=== PATIENT | male | born 1970 | race Caucasian/White ===

== ENCOUNTER 2017-05-10 16:56 | Emergency (ER) | payer MEDICAID, SELFPAY ==
[2017-05-10 16:57] VITALS: BP 110/69; PULSE 125; RESP 16; TEMP 37.4; O2SAT 96; BMI 24.3
--- NOTE | 2017-05-10 17:35 | RAD_ITS ---
STUDY: X-RAY - RIGHT FOOT CLINICAL: Male, 46 years old. Acute traumatic injury of the right foot. TECHNIQUE: 3 view(s) of the foot. COMPARISON: None. FINDINGS: Normal talus, calcaneus, and tarsal bones. Dorsal enthesophyte of the calcaneus. Normal visualized subtalar, talonavicular, calcaneocuboid, tarsal and tarsometatarsal articulations. Normal metatarsi. Normal metatarsophalangeal joint of the great toe. Normal tibial and fibular sesamoid bones. Normal interphalangeal joint of the great toe. Normal phalanges of the great toe. Normal second through fifth metatarsophalangeal joints. Normal interphalangeal joints and phalanges of the lesser toes. The soft tissue structures are unremarkable. RAD/Foot min 3 Views IMPRESSION: Negative for fracture, dislocation or foreign body. Electronically Signed: Mere Murillo MD at 18:28 EST , Service support ,
--- NOTE | 2017-05-10 18:38 | ED.VISSUMM ---
- ER Visit Summary Date of Service: 05/10/17 Chief Complaint: Injury to right foot History of Present Illness: The patient is a 46 M who states a fence post had come out of the ground. He had stepped on it to push it back into the ground and it punctured through his shoe and he sustained a wound to the bottom of his right foot. He complains of pain and swelling. He has been able to bear weight. He denies any other injuries. Physical Examination: Afebrile initial heart rate 125 vitals otherwise normal Heart regular rhythm tachycardia Lungs are clear Abdomen soft Patient has active full range of motion of the right foot there is about half a centimeter very superficial wound on the plantar aspect of the foot near the base of the first toe this does not go completely through skin there is no bleeding he is neurovascularly intact with brisk capillary refill normal sensation a palpable pulse Test Results: Foot x-ray is normal Emergency Department Course and Treatment: Patient was advised on supportive care including ice and elevation. He was given a postoperative shoe for comfort. He was discharged. Treatment Plan: [] Disposition: Discharge Impression: Superficial right foot laceration Right foot contusion This note was generated with [employer] dictation software. It may contain incorrect words, spelling, and punctuation that were not noted in review of the chart prior to signing ED Disposition - Plan for ED Patient: Chief Complaint: Lower Extremity Injury Referrals: Faraz Moore DO [Primary Care Provider] -
--- NOTE | 2017-05-10 18:40 | ED.DEP ---
ED Disposition - Plan for ED Patient: Chief Complaint: Lower Extremity Injury Instructions: ED Contusion Foot Referrals: Faraz Moore DO [Primary Care Provider] -
== END 2017-05-10 18:46 | disposition home or self-care (01) ==
PROVIDERS: Emergency Provider Emergency Medicine; Family Provider Family Medicine; PCP Family Medicine
DX: S90.31XA Contusion of right foot, initial encounter (principal); Z72.0 Tobacco use; X58.XXXA Exposure to other specified factors, initial encounter; Y93.89 Activity, other specified; Y92.89 Other specified places as the place of occurrence of the external cause; Y99.8 Other external cause status
CPT/HCPCS: 73630; 99281

== ENCOUNTER 2017-06-01 22:51 | Emergency (ER) | payer MEDICAID, SELFPAY ==
[2017-06-01 22:52] VITALS: BP 155/102; PULSE 73; RESP 16; TEMP 36.8; O2SAT 98; BMI 23.0
--- NOTE | 2017-06-01 23:13 | RAD_ITS ---
STUDY: X-RAY - LEFT FOOT CLINICAL: Male, 46 years old. Puncture wound TECHNIQUE: 3 view(s) of the foot. COMPARISON: None. FINDINGS: Normal talus, calcaneus, and tarsal bones. Normal visualized subtalar, talonavicular, calcaneocuboid, tarsal and tarsometatarsal articulations. Normal metatarsi. Normal metatarsophalangeal joint of the great toe. Normal tibial and fibular sesamoid bones. Normal interphalangeal joint of the great toe. Normal phalanges of the great toe. Normal second through fifth metatarsophalangeal joints. There is Hammer toe deformity of the second through fifth toes. There appears be a cortical defect in the trochlea of the second proximal phalanx. The soft tissue structures are unremarkable. RAD/Foot min 3 Views IMPRESSION: No radiopaque foreign body. Possible nondisplaced intra-articular fracture second proximal phalanx evident on one projection only. Electronically Signed: Evgeny Angulo MD at 23:53 EDT , Service support ,
--- NOTE | 2017-06-01 23:19 | ED.DCSUM_ITS ---
- ER Visit Summary Date of Service: 06/01/17 Chief Complaint: Pain and puncture wound top of the left foot History of Present Illness: The patient is a 46 M Past medical history. Tetanus up-to-date from a year ago. Patient states a board with a nail sticking through it fell down off his boat and struck him on top of his left foot going through the shoe and the nail sticking in his foot which he had to remove the whole board. This occurred about 3 hours ago. Complaining of foot pain and the puncture wound. Denies any other injuries. Physical Examination: Appearing middle-aged male. Vital signs are stable afebrile. HEENT exam unremarkable for dentition. Lungs clear to auscultation. Heart regular rate and rhythm. Chest wall nontender. Abdomen soft nontender. He is moving all 4 extremities. They are neurovascularly intact. The top of his left foot has a puncture wound from a nail puncture. There is mild swelling. There is no cellulitis. No streaking. There is tenderness to the top of his left foot. No gross bony deformity. He is able to wiggle his toes. His DP pulses intact. He has chronic changes to his nails secondary to nail fungal infections. Left foot is neurovascularly intact. Test Results: Foot x-ray read by myself shows no acute abnormality. No foreign body. No fracture. No subcu air. Emergency Department Course and Treatment: Patient be treated with Keflex due to the puncture wound. [place] for pain. Treatment Plan: Repeat exam patient is doing well. Will be discharged to home. [place] home pack. Otherwise ice and Motrin for pain. He will be placed on 5 days of Keflex due to the puncture wound but currently there is no signs of infection. Disposition: Discharge Impression: Acute left foot contusion Acute left foot puncture wound on a nail This note was generated with [employer] dictation software. It may contain incorrect words, spelling, and punctuation that were not noted in review of the chart prior to signing ED Disposition - Plan for ED Patient: Chief Complaint: Wound Referrals: Faraz Moore DO [Primary Care Provider] -
[2017-06-01] MEDS: HYDROcodone Bitartrate/Apap 5/325 Tablet PO ×2 (23:24→23:51)
[2017-06-01] MEDS: Cephalexin 250 MG Capsule 500 MG PO (23:25)
--- NOTE | 2017-06-01 23:46 | DCINST.ED_ITS ---
ED Disposition - Plan for ED Patient: Disposition: Home or Assisted Living Chief Complaint: Wound Instructions: ED Wound Puncture Foot Prescriptions: Cephalexin [Keflex] 500 mg PO Q6 #20 cap Referrals: Faraz Moore DO [Primary Care Provider] - As Needed Additional Instructions: Ice and elevate left foot. Motrin and limited [place] for pain. Watch for any signs of infection. If you develop a fever, red streaks or worsening swelling return to the ER. Keflex 1 pill 4 times a day for the next 5 days to prevent infection.
== END 2017-06-01 23:57 | disposition home or self-care (01) ==
PROVIDERS: Emergency Provider Emergency Medicine; Family Provider Family Medicine; PCP Family Medicine
DX: S91.332A Puncture wound without foreign body, left foot, initial encounter (principal); S90.32XA Contusion of left foot, initial encounter; Z72.0 Tobacco use; W45.0XXA Nail entering through skin, initial encounter; W22.8XXA Striking against or struck by other objects, initial encounter; Y93.89 Activity, other specified; Y92.008 Other place in unspecified non-institutional (private) residence as the place of occurrence of the external cause; Y99.8 Other external cause status
CPT/HCPCS: 73630; 99283

== ENCOUNTER 2017-06-17 16:08 | Emergency (ER) | payer MEDICAID, SELFPAY ==
[2017-06-17 16:08] VITALS: BP 146/69; PULSE 107; RESP 16; TEMP 36.4; O2SAT 95; BMI 23.4
--- NOTE | 2017-06-17 16:45 | ED.DCSUM_ITS ---
- ER Visit Summary Date of Service: 06/17/17 Chief Complaint: Right foot pain History of Present Illness: The patient is a 46 M presents to the emergency department with pain in his right foot. Patient states he was working outdoors yesterday per he did not notice, but there was some gravel in his boots. When he took him off, he had some increasing pain in the ball of his foot. Throughout the day, the pain is worsened. He states he went to his primary care office sent in here. He denies any fevers or chills. He denies any history of infection. He does not take any daily medications. Physical Examination: Equal. Patient does have some chronic change in the skin at the plantar aspect of the base of the first metatarsal. There is no fluctuance. There is minimal erythema. There is no streaking. Pulses are normal. No evidence of foreign body. Mild tenderness to palpation. Test Results: [] Emergency Department Course and Treatment: Plain films were obtained of the foot. There does appear to be a metallic sliver that is within the plantar aspect of the foot. The patient has tenderness at this area. I did feel the foreign body retrieval be the best benefit. I could not achieve anesthesia with the patient despite the large amount of local anesthetic done under sterile technique. As the patient would not tolerate this, I discussed the case with Dr. Andres. He actually came to the emergency department and evaluated the patient. He had tried to anesthetize the patient and he still would not tolerate it. The plan is for outpatient operative retrieval. The patient will be placed on oral antibiotics. He will be scheduled for outpatient operative retrieval within the next 72 hours. He is comfortable with this plan of care. Treatment Plan: [] Disposition: Discharge Impression: Foreign body right foot This note was generated with [employer] dictation software. It may contain incorrect words, spelling, and punctuation that were not noted in review of the chart prior to signing ED Disposition - Plan for ED Patient: Chief Complaint: Lower Extremity Injury Instructions: ED Foreign Body Soft Tissue Prescriptions: Hydrocodone Bitart/Apap 5-325 [[place] 5/325] 1 tab PO Q4H PRN PRN 3 Days #8 tab PRN Reason: Pain Ciprofloxacin [Cipro] 500 mg PO BID #14 tab Clindamycin [Cleocin] 300 mg PO 4X/DAY #80 cap Referrals: Kannan Andres DPM [STAFF PHYSICIAN] -
[2017-06-17] MEDS: HYDROcodone Bitartrate/Apap 5/325 Tablet PO (17:01)
--- NOTE | 2017-06-17 17:03 | RAD_ITS ---
STUDY: X-RAY - RIGHT FOOT CLINICAL: Male, 46 years old. Pain. Swelling. TECHNIQUE: 3 view(s) of the foot. COMPARISON: 05/10/2017. FINDINGS: There is an enthesophyte involving the posterior superior calcaneus at the site of insertion of the Achilles tendon. Normal visualized subtalar, talonavicular, calcaneocuboid, tarsal and tarsometatarsal articulations. Normal metatarsi. Normal metatarsophalangeal joint of the great toe. Normal tibial and fibular sesamoid bones. Normal interphalangeal joint of the great toe. Normal phalanges of the great toe. Normal second through fifth metatarsophalangeal joints. Normal interphalangeal joints and phalanges of the lesser toes. There is a 9 mm linear metal foreign body in the soft tissues plantar to the first proximal phalanx. This was not present on the previous exam. RAD/Foot min 3 Views IMPRESSION: No acute fracture or dislocation. Linear metal foreign body in the soft tissues anterior to the first proximal phalanx. Electronically Signed: Armand Kemp MD at 17:22 EDT , Service support ,
--- NOTE | 2017-06-17 19:00 | PCM.CONS.GEN ---
Reason for Consult Date of Consultation: 06/17/17 Reason for Consultation: Right foot pain, foreign body History of Present Illness: The patient is a 46 year old male presented to the ER for right foot pain. Patient relates he was working with boots on, and developed pain yesterday, but noted significant worsening pain today. He relates he went to see his PCP, who sent him here. I was consulted by Dr. Rosa from the ER, patient was noted to have two small puncture wounds to the plantar right 1st MTPJ, xrays were ordered and saw a metallic foreign body. Dr. Rosa attempted local anesthesia, patient was not able to tolerate it, and local anesthesia was not able to be obtained. When speaking to the patient, patient relates he hates needles. Patient denies any other complaints at this time. Past Medical History Allergies aspirin Allergy (Verified 06/17/17 16:09) Swelling naproxen Allergy (Verified 06/17/17 16:09) Swelling Penicillins Allergy (Verified 06/17/17 16:09) Hives Home Medications: Ambulatory Orders Medication Instructions Recorded Ciprofloxacin [Cipro] 500 mg PO BID #14 tab 06/17/17 Clindamycin [Cleocin] 300 mg PO 4X/DAY #80 cap 06/17/17 Hydrocodone Bitart/Apap 5-325 1 tab PO Q4H PRN PRN 3 Days #8 tab 06/17/17 [[place] 5/325] Smoking Status: Current every day smoker Review of Systems Constitutional: Denies: Anorexia, Chills, Fever, Malaise, Weakness, Fatigue Musculoskeletal: Reports: Foot Pain. Denies: Back Pain, Leg Pain, Shoulder Pain Objective: Right foot xrays, 3 views from today were reviewed: There is metallic foreign body to the foot at the level of the plantar aspect of the base of the hallux, there is no gas, no fractures, no dislocations, no periosteal reaction or osteolysis present. - Physical Exam General: Alert, Oriented x3, Cooperative, No apparent distress Extremities: No cyanosis, Capillary Refill Less than 3 Seconds, No Calf Tenderness, Peripheral Pulses Normal, - - There are two puncture wounds to the plantar medial 1st met head on the right foot, there is significant callus formation along with POP localized to this area, there is no drainage noted, however there is some warmth and mild inflammation to the area, there is no necrosis, no maloder, no streaking, no fluctuance, no crepitus present to the site. There are no other open lesions or areas of inflammation bilateral foot/ankle. Sensation is intact to the foot/ankle, motor function intact foot/ankle, and vascular status intact to the foot/ankle bilaterally. Calf is soft and supple bilateral. CFT < 2 seconds to all toes, no other areas of edema bilaterally. No other open wounds bilateral foot/ankle. Hair present to the foot bilateral. Muscle strength intact to the foot/ankle to the major muscle groups bilateral. Overall poor hygiene present. There is thickening, yellowing, and dystrophy of the toenails bilateral. Psych/Mental Status: Appropriate, Alert and oriented to time, place, person, mood and affect Vital Signs Temp Pulse Resp BP Pulse Ox 97.6 F L 80 16 132/78 H 98 06/17/17 16:08 06/17/17 19:09 06/17/17 19:09 06/17/17 19:09 06/17/17 19:09 Oxygen Delivery Method Room Air Weight: 76.204 kg Body Mass Index (BMI) 23.4 Assessment/Plan Puncture wounds right foot with foreign body right foot Mild cellulitis right foot Reviewed the findings with the patient. Reviewed the right foot xrays, 3 views from today in the ER, reviewed the findings with the patient. With patient's consent and after the site was cleansed with 70% Isopropyl alcohol, attempts were made to complete a 1st ray nerve block on the right foot, however patient not able to tolerate this, and no anesthetic was administered. Discussed going to operating room for local and MAC anesthesia, he was amendable to this, however he relates he will not be available until , he relates he will be leaving until then to drive his friend out of town. Patient relates he must go and patient relates he will cut off his foot if has to in order to take friend. He relates he has to go because friend did him a favor with his house, and owes him. Reviewed the risks with patient, he understands this could get worse in meantime, patient expressed understanding and agreement. We will plan to proceed with foreign body removal / I+D when he returns. In meantime, patient was prescribed clindamycin and cipro for antibiotic coverage (culture was not obtained, as there was nothing to culture at this time). A gauze/fidencio dressing was applied, and patient was instructed to keep the site clean and otherwise dry. He was given a surgical shoe. He is to limit activity on foot as much as possible. This was discussed with him and he agreed with plan. All of his questions were answered. I discussed with ER physician Dr. Rosa in detail regarding this.
[2017-06-17 19:09] VITALS: BP 132/78; PULSE 80; RESP 16; O2SAT 98
== END 2017-06-17 19:10 | disposition home or self-care (01) ==
PROVIDERS: Emergency Provider Emergency Medicine; Family Provider Family Medicine; PCP Family Medicine
DX: S91.341A Puncture wound with foreign body, right foot, initial encounter (principal); Z72.0 Tobacco use; X58.XXXA Exposure to other specified factors, initial encounter; Y93.01 Activity, walking, marching and hiking; Y92.89 Other specified places as the place of occurrence of the external cause; Y99.8 Other external cause status
CPT/HCPCS: 73630; 99282

== ENCOUNTER 2017-06-19 05:50 | Day surgery (SDC) | payer MEDICAID, SELFPAY ==
[2017-06-19] VITALS (7 sets, daily range): BP systolic 103–119; BP diastolic 67–87; PULSE 72–81; RESP 16; TEMP 36.6–36.7; O2SAT 94–100; BMI 23.1
--- NOTE | 2017-06-19 05:56 | EKG12_ITS ---
Test Reason : PE OP Blood Pressure : / mmHG Vent. Rate : 083 BPM Atrial Rate : 083 BPM P-R Int : 118 ms QRS Dur : 112 ms QT Int : 370 ms P-R-T Axes : 070 071 077 degrees QTc Int : 434 ms Normal sinus rhythm Normal ECG When compared with ECG of 03-APR-2012 16:29, No significant change was found Confirmed by MUSA SOMERS, KEYANA ([id number]), proposal editor MARIBEL SANDY ([id number]) on 06/23/2017 2:08:12 PM Referred By: Kannan Andres Confirmed By:KEYANA VIGIL MD
[2017-06-19 06:21] LABS: Absolute Lymphocyte Count 1.92 X10^3/ul (0.83-4.51); Basophil# 0.04 X10^3/uL; Basophil% 0.5 % (0-1); Eosinophil# 0.44 X10^3/uL; Eosinophils% 5.4 % (0-5); Hematocrit 39.3 % (40-54); Hemoglobin 13.1 g/dl (13.0-16.5); Lymphocyte # 1.92 X10^3/ul (4.0); Lymphocyte % 23.6 % (19-41); Mean Corp Hgb Conc 33.3 g/gl (32-36); Mean Corpuscular Hgb 32.1 pg (27.0-32.0); Mean Corpuscular Volume 96.3 fL (80-94); Mean Platelet Vol. 9.4 fl (6.2-12.0); Monocyte# 0.69 X10^3/uL; Monocyte% 8.5 % (0-10); Neutrophil # 5.04 X10^3/uL (2.7-7.7); Neutrophil % 61.9 % (47-70); Platelet Count 278 K/mm3 (150-450); RBC Distribution Width CV 12.3 % (11.6-14.6); RBC Distribution Width SD 42.4 fl (35.1-43.9); Red Blood Count 4.08 M/mm3 (4.6-6.2); White Blood Count 8.1 K/mm3 (4.4-11.0)
[2017-06-19 06:24] LABS: POSITIVE COUNT NO; POSITIVE DIFFERENTIAL NO; POSITIVE MORPHOLOGY NO
[2017-06-19 06:34] LABS: ALB/GLOB Ratio 0.8 RATIO (0.9-2.4); AST(SGOT) 29 U/L (15-37); Alanine Aminotransfer ALT/SGPT 28 U/L (16-61); Alkaline Phosphatase 86 U/L (45-117); Anion Gap 5 (5-15); BUN 15 mg/dL (7-18); BUN/Creat Ratio 16.4 RATIO (10-20); Calcium,Total 8.3 mg/dL (8.5-10.1); Chloride 106 mmol/L (98-107); Creatinine, Serum 0.91 mg/dL (0.70-1.30); EST Glomerular Filtration Rate 94 mL/min (>60); Est Glom Filt Rate - Afr Amer 114 mL/min (>60); Estimated Creatinine Clearance 106.88 ml/min; Globulin 3.6 g/dL (2.2-4.2); Glucose 96 mg/dL (74-106); Protein, Total 6.6 g/dL (6.4-8.2); Sodium Level 139 mmol/L (136-145)
[2017-06-19] MEDS: Clindamycin 900 MG/50 ML BAG 75 MG IV (07:07)
--- NOTE | 2017-06-19 07:15 | FORE_PTH ---
PATIENT: LATOSHA WARREN LOC: [facility] – [place] U#:[id number] AGE/SX: 46/M ROOM: RE06/19/[address]: Dr. Kannan Andres DPM : 1970 BED: DIS: 06/19/2017 SPEC #: [id number] RECD: 06/19/17 08:08 STATUS: BRUNA BROCK #: [id number] OMAR: 06/19/17 07:[address]: Kannan Andres DEPT: SURGICAL PATHOLOGY RECD BY: Av Andujar ENTERED: 06/19/17 09:34 SP TYPE: FOREIGN B ELVIS DR: Dr. Faraz Moore, DO Tissues: FOREIGN BODY Procedures: Surgery Specimen Level I HEADER OPERATION: Incision and drainage abscess, removal foreign body, foot PRE-OP DIAGNOSIS: Foreign body right foot TISSUE SUBMITTED: Right foot foreign body MICROSCOPIC DIAGNOSIS Right foot foreign body: Foreign body (thin metallic pin). Gross only. SJ:lorena 06/20/17 MICROSCOPIC DESCRIPTION Slides are reviewed. GROSS DESCRIPTION Received in fixative is one container labeled with the patient's name and designated right foot foreign body. The specimen consists of a thin metallic pin measuring 1 cm in length and less than 0.1 cm in diameter. The object has magnetic properties. No soft tissue submitted. This is a grossly only. AM/sp 06/19/17 CPT: 98963
--- NOTE | 2017-06-19 07:15 | RAD_ITS ---
STUDY: X-RAY - RIGHT FOOT CLINICAL: Male, 46 years old. Foreign body removal TECHNIQUE: Two limited view(s) of the foot were obtained. COMPARISON: June 17, 2017 FINDINGS: Bones: There are no acute osseous abnormalities. Joints: The visualized joints are unremarkable. Soft tissues: The soft tissues are unremarkable. Foreign body: None RAD/Foot 2 Views IMPRESSION: Limited views of the distal right foot were obtained intraoperatively during foreign body removal. The previously seen radiopaque linear foreign body is no longer visualized in the plantar soft tissues. Electronically Signed: Marily Kaur MD at 14:36 EDT Tel Direct: [phone], Service support ,
--- NOTE | 2017-06-19 07:15 | PCM.DC.POD ---
Discharge Diet: Light diet - advance as tolerated Discharge Activity: May Not Drive Weight Bearing Status: No weight bearing - No weightbearing to the ball and toes of the right foot Keep extremity elevated above heart level: Right Leg - Keep right foot elevated for at least 50 minutes of every hour using pillows Call your doctor if your incision/area has: Continuous Slow Oozing, Sudden Increased Bleeding, Foul Smelling Discharge Call your doctor if you observe: Fever of 101 or Higher, Coldness, Increased Pain, Shortness of breath, Chest pain, Calf discomfort, Uncontrolled pain Cleanse incision/area with: - - Starting tomorrow, remove dressing from right foot. Cleanse with antibacterial soap and saline solution, apply overlying gauze and fidencio dressing, change daily. Allergies/Adverse Reactions: Allergies aspirin Allergy (Verified 06/18/17 10:24) Swelling naproxen Allergy (Verified 06/18/17 10:24) Swelling Penicillins Allergy (Verified 06/18/17 10:24) Hives Medications to take at Discharge Ciprofloxacin [Cipro] 500 mg PO BID #14 tab 06/17/17 Clindamycin [Cleocin] 300 mg PO 4X/DAY #80 cap 06/17/17 Hydrocodone Bitart/Apap 5-325 [[place] 5/325] 1 tab PO Q4H PRN PRN 3 Days #8 tab 06/17/17 0.9 % Sodium Chloride [Saline Wound Wash] 210 ml MC DAILY 14 Days solution 06/19/17 The following prescriptions were given: 0.9 % Sodium Chloride [Saline Wound Wash] 210 ml MC DAILY 14 Days solution Primary Care Physician: Faraz Moore DO [Primary Care Provider] - Please Follow Up With: Kannan Andres DPM When: within 1 week or sooner if needed
[2017-06-19] MEDS: Bupivacaine 0.25% 30 ML Vial (07:33)
--- NOTE | 2017-06-19 07:42 | OP.PCM_ITS ---
Report of Operation Date of Procedure: 06/19/17 - Surgeon: Kannan Andres DPM Pre-Operative Diagnosis: Foreign body and abscess right foot Post-Operative Diagnosis: Same Surgery/Procedure Performed:: Incision and drainage of abscess right foot. Removal of foreign body right foot Description of Surgical Findings:: Abscess right foot Metallic foreign body right foot Type of Anesthesia:: General Specimen's removed: 1. Culture of abscess right foot sent to microbiology. 2. Foreign body right foot sent to pathology Description of Procedure: Indications: Patient is 46 year old gentleman who has a foreign body to the right foot at the base of the great toe. It is painful, swollen, with some redness present. He was seen in the ER earlier this week, however he was unable to tolerate any local anesthetic. He elected to come to the operating room for removal of foreign body along with incision and drainage right foot. He has been taking clindamcyin as well as cipro as prescribed by the ER. The possible benefits vs risks, goals, expectations, and typical healing time were discussed with patient in detail. He was advised the risks include, but are not limited to further pain, worsening, weakness, poor cosmetic result, problems walking, need for further procedures, recurrence, numbness, swelling, chronic pain, nerve damage, scar tissue, complex regional pain syndrome, blood clots, loss of life, loss of limb. The patient expressed understanding and agreement, he was able to repeat these back. The consent forms were reviewed with him and he freely signed them. All of his questions were answered. Operative procedure: The patient was brought back to the operating room and was placed on the operating room table in the supine position. He was carefully secured to the operating room table with a safety belt around his waist. The patient received general anesthesia per the anesthesia team. The patient received 900mg of IV Clindamycin for antibiotic prophylaxis. A well padded pneumatic tourniquet was applied around the right ankle. The right foot was scrubbed, prepped, and draped in the usual aseptic fashion. A time out was performed and the patient was properly identified and the surgical plan was confirmed. The right foot was elevated for 3 minutes and the right ankle pneumatic tourniquet was inflated to 250mmHg. Further attention was directed to the foot, there were two areas of puncture wound present, with overlying significant callus tissue. The overlying callus tissue was debrided away using a 15 blade. It was noted one of the puncture wounds was healed. The other was noted to have any underlying abscess which was present. The abscess was incised with a 15 blade, there was immediate expression of purulent drainage , the site was probed and extended down to the subcutaneous tissue layer, there was not probe to bone, joint or tendon. The abscess was completely drained and was excised using a 15 blade, a culture was obtained and was sent to microbiology for further evaluation. It was noted within the site there was the metallic foreign body which was removed. Intra operative flouroscopy was used and confirmed removal of the foreign body in toto. The foreign body was sent to pathology. At this time the site was flushed out with copious amounts of normal saline solution. All remaining tissues appeared to be healthy and viable. The site was packed with 1/4 Iodoform gauze packing, and overlying Betadine soaked Adaptic, 4x4 gauze, kerlix and fidencio dressing was applied. the pneumatic tourniquet was deflated (total time was 12 minutes), there was immediate return of vascular flow to foot with normal temperature, and CFT< 2 seconds to all toes. Of note a total of 20mL of 0.25% Bupivacaine plain was given as a local nerve block around the surgical site for further pain control. The patient tolerated the above procedure well and the anesthesia well with no complications. Patient was transported from the operating room to the recovery room with vital signs stable and in good condition. Post operative orders were placed. Post operative instructions were reviewed with patient and his verbal and written. Patient to continue with antibiotic therapy as prescribed by the ER. Patient to follow up with me within 1 week in the office, sooner if needed. Grafts/Implants Used: None - Complications None
--- NOTE | 2017-06-19 07:55 | RAD_ITS ---
STUDY: X-RAY - RIGHT FOOT CLINICAL: Male, 46 years old. Postoperative. Incision Abscess drainage. Foreign body removal. TECHNIQUE: 2 view(s) of the foot. COMPARISON: None. FINDINGS: No acute fracture or dislocation. Soft tissue swelling of the first digit without evidence of foreign body. Remainder is within normal limits RAD/Foot 2 Views IMPRESSION: As above Electronically Signed: Jourdan Rios DO at 9:15 EDT Tel , Service support ,
== END 2017-06-19 09:39 | disposition home or self-care (01) ==
LOC: SDC 05:50 → AC 05:51
PROVIDERS: Anesthesiology; Family Provider Family Medicine; PCP Family Medicine; Visit Provider Podiatrist
PROC: (CPT 10060; principal; 2017-06-19 07:05)
DX: S91.341A Puncture wound with foreign body, right foot, initial encounter (principal); L02.611 Cutaneous abscess of right foot; L03.115 Cellulitis of right lower limb; F17.200 Nicotine dependence, unspecified, uncomplicated; Z79.2 Long term (current) use of antibiotics; Z79.891 Long term (current) use of opiate analgesic; W45.8XXA Other foreign body or object entering through skin, initial encounter; Y93.89 Activity, other specified; Y92.89 Other specified places as the place of occurrence of the external cause; Y99.8 Other external cause status
CPT/HCPCS: 00400; 10060; 28190; 73620; 76000; 80053; 85025; 87070; 87075; 87077; 87186; 87205; 88300; 93005; J7120; J2405

== ENCOUNTER 2018-04-06 19:13 | Emergency (ER) | payer MEDICAID, SELFPAY ==
[2018-04-06 19:14] VITALS: BP 146/87; PULSE 104; RESP 17; TEMP 36.5; O2SAT 97; BMI 26.2
--- NOTE | 2018-04-06 20:37 | ED.DCSUM_ITS ---
- ER Visit Summary Date of Service: 04/06/18 Chief Complaint: Rash History of Present Illness: The patient is a 47 M who presents with a rash that has been constant for the past month. Patient states the rash is pruritic. Patient states the pruritus improves after itching. Patient states the rash is from his neck down. Patient denies any new exposures. Patient states he has been treated with permethrin for scabies. Patient denies any difficulty breathing or difficulty swallowing. Patient states his has a similar rash. Physical Examination: Vital signs are stable. Patient is afebrile. Patient is in no acute distress. Skin is warm dry. There is a diffuse maculopapular rash. There are some excoriations noted. There are no vesicles or pustules. There is no involvement of the mucous membranes. There are no petechia noted. Neck is supple. Trachea is midline. There is no JVD noted. Heart was regular rate and rhythm. Lungs are clear and equal bilaterally. Abdomen is soft and nontender. Cranial nerves II through XII are intact. There are no focal motor or sensory deficits noted. Emergency Department Course and Treatment: He was given prescriptions for prednisone and Atarax. Disposition: Discharge home Impression: Dermatitis This note was generated with [employer] dictation software. It may contain incorrect words, spelling, and punctuation that were not noted in review of the chart prior to signing ED Disposition - Plan for ED Patient: Disposition: Home or Assisted Living Chief Complaint: Rash Diagnosis: Dermatitis Instructions: ED Dermatitis Non Specific Rash Prescriptions: Hydroxyzine HCl 25 mg PO Q8H PRN PRN #20 tab PRN Reason: Itching predniSONE tablet 60 mg PO DAILY #15 tab Referrals: Faraz Moore DO [Primary Care Provider] -
[2018-04-06 20:46] VITALS: RESP 18
== END 2018-04-06 20:48 | disposition home or self-care (01) ==
PROVIDERS: Emergency Provider Emergency Medicine; Family Provider Family Medicine; PCP Family Medicine
DX: L30.9 Dermatitis, unspecified (principal); Z72.0 Tobacco use
CPT/HCPCS: 99282

== ENCOUNTER 2022-12-01 09:38 | Emergency (ER) | payer SELFPAY ==
[2022-12-01 09:39] VITALS: BP 148/103; PULSE 105; RESP 16; TEMP 36.3; O2SAT 98; BMI 28.3
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
[2022-12-01] MEDS: Ondansetron 4 MG/2 ML Vial IV (10:13)
[2022-12-01] MEDS: Morphine 4 MG/ML Syringe IV (10:13)
[2022-12-01] MEDS: 0.9% Normal Saline (1000mL) 1,000 ML 1000 ML IV (10:13)
[2022-12-01 10:24] LABS: Absolute Neutrophil Count 4.9 X10^3/uL (2.0-7.7); Basophil# 0.05 X10^3/uL; Basophil% 0.7 % (0-1); Eosinophil# 0.12 X10^3/uL; Eosinophils% 1.7 % (0-5); Hematocrit 44.5 % (40-54); Hemoglobin 14.7 g/dL (13.0-16.5); Lymphocyte % 18.8 % (19-41); Mean Corpuscular Hgb 31.1 pg (27.0-32.0); Mean Corpuscular Volume 94.1 fL (80-94); Mean Platelet Vol. 9.5 fl (6.2-12.0); Monocyte# 0.48 X10^3/uL; Monocyte% 6.9 % (0-10); NRBC Flagged by Analyzer 0 % (0-5); Neutrophil # 4.93 X10^3/uL (2.7-7.7); Neutrophil % 71.3 % (47-70); Platelet Count 257 K/mm3 (150-450); RBC Distribution Width CV 12.3 % (11.6-14.6); RBC Distribution Width SD 43.2 fl (35.1-43.9); Red Blood Count 4.73 M/mm3 (4.6-6.2); White Blood Count 6.9 K/mm3 (4.4-11.0)
[2022-12-01 10:43] LABS: ALB/GLOB Ratio 0.9 RATIO (0.9-2.4); AST(SGOT) 19 U/L (15-37); Alanine Aminotransfer ALT/SGPT 25 U/L (16-61); Albumin, Serum 3.4 g/dL (3.2-5.0); Alkaline Phosphatase 99 U/L (45-117); Anion Gap 3 (5-15); BUN 16 mg/dL (7-18); BUN/Creat Ratio 16.3 RATIO (10-20); Calcium,Total 8.6 mg/dL (8.5-10.1); Chloride 107 mmol/L (98-107); Creatinine, Serum 0.98 mg/dL (0.70-1.30); EST Glomerular Filtration Rate 85 mL/min (>60); Est Glom Filt Rate - Afr Amer 102 mL/min (>60); Estimated Creatinine Clearance 92.84 ml/min; Globulin 3.8 g/dL (2.2-4.2); Glucose 97 mg/dL (74-106); Lipase 35 U/L (13-75); Potassium 3.7 mmol/L (3.5-5.1); Protein, Total 7.2 g/dL (6.4-8.2); Sodium Level 139 mmol/L (136-145)
== END 2022-12-01 11:29 | disposition home or self-care (01) ==
PROVIDERS: Emergency Provider Emergency Medicine; PCP Family Medicine; Visit Provider Emergency Medicine
DX: S22.41XA Multiple fractures of ribs, right side, initial encounter for closed fracture (principal); F17.210 Nicotine dependence, cigarettes, uncomplicated; R10.9 Unspecified abdominal pain; V28.09XA Other motorcycle driver injured in noncollision transport accident in nontraffic accident, initial encounter; Y92.410 Unspecified street and highway as the place of occurrence of the external cause
CPT/HCPCS: 36415; 71045; 74177; 80053; 83690; 85025; 99283; J7030; Q9967; A4216; J2405

== ENCOUNTER 2024-08-30 05:20 | Inpatient (IN) | payer OTHER, SELFPAY ==
[2024-08-30] VITALS (13 sets, daily range): BP systolic 127–157; BP diastolic 77–92; PULSE 61–101; RESP 16–34; TEMP 36.4–36.8; O2SAT 93–97; BMI 32.5; BMI 31.3
--- NOTE | 2024-08-30 05:29 | EKG12_ITS ---
Test Reason : SOB Blood Pressure : */* mmHG Vent. Rate : 89 BPM Atrial Rate : * BPM P-R Int : * ms QRS Dur : 102 ms QT Int : 386 ms P-R-T Axes : * 39 46 degrees QTcB Int : 469 ms nsr with short TN baseline artrifact nssst changes abnormal Confirmed by Tacos Medellin ([id number]), web content editor CYNTHIA BAKER ([id number]) on 08/31/2024 6:15:13 AM Referred By: Confirmed By: Tacos Medellin
[2024-08-30 05:38] LABS: Absolute Lymphocyte Count 1.94 X10^3/uL (0.83-4.51); Absolute Neutrophil Count 4.8 X10^3/uL (2.0-7.7); Basophil# 0.07 X10^3/uL; Basophil% 0.9 % (0-1); Eosinophil# 0.32 X10^3/uL; Eosinophils% 4.1 % (0-5); Hematocrit 45.7 % (40-54); Lymphocyte # 1.94 X10^3/ul (0.83-4.51); Lymphocyte % 24.8 % (19-41); Mean Corp Hgb Conc 32.8 g/dL (32-36); Mean Corpuscular Hgb 30.4 pg (27.0-32.0); Mean Corpuscular Volume 92.5 fL (80-94); Mean Platelet Vol. 9.8 fl (6.2-12.0); Monocyte# 0.64 X10^3/uL; Monocyte% 8.2 % (0-10); NRBC Flagged by Analyzer 0 % (0-5); Neutrophil # 4.75 X10^3/uL (2.7-7.7); Neutrophil % 60.7 % (47-70); Platelet Count 250 K/mm3 (150-450); RBC Distribution Width CV 12.7 % (11.6-14.6); RBC Distribution Width SD 43.1 fl (35.1-43.9); Red Blood Count 4.94 M/mm3 (4.6-6.2); White Blood Count 7.8 K/mm3 (4.4-11.0)
[2024-08-30] MEDS: Ipratropium/Albuterol Sulfate 3 ML AMPUL.NEB INHALATION ×3 (05:39→05:40)
[2024-08-30 05:48] LABS: International Normalized Ratio 0.8; Prothrombin Time (Protime)PT. 11.6 SECONDS (11.7-14.9)
[2024-08-30 05:49] LABS: Partial Thromboplast Time 25.2 Seconds (24.1-36.2)
[2024-08-30] MEDS: MethylPREDNISolone 125 MG/2 ML Vial IV (05:49)
--- NOTE | 2024-08-30 05:50 | EDS_ITS ---
HPI History of Present Illness Chief Complaint: Shortness of Breath Narrative Narrative: Patient is a 53-year-old male with no known significant past medical history does not follow-up with a doctor on a regular basis who presented to the emergency department to complaint shortness of breath. Patient states that today when he woke up he states that he was try to get ready for work and noted that when he tried to walk a short distance he was very winded and short of breath. He states that he does smoke denies any alcohol use or drug use. Patient states that this has happened 1 time in the past he was given an inhaler in the emergency department and [facility] and was ultimately sent home. [facility] Medical History Smoker Home Medications ?Medication ?Instructions ?Recorded ?Last Taken ?Type NK 08/30/24 Unknown History Allergy/AdvReac Type Severity Reaction Status Date / Time aspirin Allergy Swelling Verified 08/30/24 05:20 naproxen Allergy Swelling Verified 08/30/24 05:20 Penicillins Allergy Hives Verified 08/30/24 05:20 Surgical History Hx of foot surgery Social History Smoking Status: Current every day smoker tobacco type: cigarettes ROS ROS ED ROS Narrative Constitutional: Denies fevers, chills, headaches Eyes: Denies change in vision double vision blurry vision Cardiovascular: Denies chest pain, palpitations Respiratory: Complains of shortness of breath as noted above denies sputum production Abdomen: Denies nausea vomit diarrhea : Denies urinary symptoms Neurological: Denies numbness, weakness, tingling Musculoskeletal: Denies back pain Skin: Denies rashes or lesions EXAM Physical Exam Narrative Exam Narrative: General: Patient is lying in bed rest comfortably did not appear to be acute distress Head: Atraumatic, normocephalic Eyes: PERRL bilaterally, EOMI bilaterally, no conjunctival injection noted Neck: Soft, supple, trachea midline Cardiovascular: Patient tachycardic with regular rhythm Respiratory: Patient has diffuse end expiratory wheezing noted bilaterally Abdomen: Soft, nondistended, nontender to palpation Extremities: +5/5 strength noted in the bilateral upper and lower extremities, radial pulses +2/4 in the bilateral extremities Neurological: Patient following commands knew that he was at [facility] the year is 2024 Skin: Warm, dry, intact no rashes or lesions noted Const Vital Signs: 08/30/24 05:21 08/30/24 05:21 08/30/24 05:23 Temperature 97.7 F L 97.7 F L Temperature Source Oral Oral Pulse Rate 101 H 101 H Respiratory Rate 34 H 34 H Respiratory Effort Short of Breath Labored Accessory Muscle Use Respiratory Depth Shallow Respiratory Pattern Tachypnea Blood Pressure 155/92 H 155/92 H Blood Pressure Mean 113 113 Pulse Ox 94 94 Oxygen Delivery Method Room Air Room Air Room Air 08/30/24 05:39 08/30/24 05:44 08/30/24 06:19 Temperature 98.0 F Temperature Source Oral Pulse Rate 89 88 Respiratory Rate 18 22 H Respiratory Effort Respiratory Depth Respiratory Pattern Blood Pressure 151/86 H Blood Pressure Mean 107 Pulse Ox 97 94 Oxygen Delivery Method Room Air Room Air 08/30/24 07:01 Temperature Temperature Source Pulse Rate 76 Respiratory Rate 19 H Respiratory Effort Respiratory Depth Respiratory Pattern Normal Blood Pressure Blood Pressure Mean Pulse Ox Oxygen Delivery Method MDM MDM MDM Narrative Medical decision making narrative: Patient is a 53-year-old male who presented to the emergency department chief complaint shortness of breath. On the differential diagnosis includes but not limited to COPD exacerbation, pneumonia, pneumothorax, ACS, CHF. Once workup is obtained reviewed he will be reevaluated. Patient given 3 DuoNebs and Solu- Medrol. Patient given 30 cc/kg bolus of IV fluids based on [place] body weight is a BMI of greater than 30 these were ordered at that 5:52 AM. Patient CBC reviewed showed no evidence leukocytosis white blood count normal at 7.8, he was 15, platelet count was 250. Patient INR normal at 0.8, sodium normal at 140, potassium normal at 4.4, creatinine normal at 1.03. Patient's AST and ALT were 34 and 33 respectively. Patient's proBNP normal at 63, troponin normal at 10. Patient's EKG reviewed showed sinus rhythm with a rate of [address] changes noted. Patient chest x-ray reviewed by myself and by radiology showed no acute cardiopulmonary processes. Patient ambulated here in the emergency department and he desaturated to 85% on room air. Patient will be given a another breathing treatment and will discuss case with hospitalist for admission. Spoke with hospitalist Dr. Roman who states that he will also wait to put admission orders and after our discussion about another patient that we discussed as well. I notified him once again that he has a COPD exacerbation and he became hypoxic while ambulating and will require admission. Patient is agreeable this plan all question concerns answered at bedside. Lab Data Labs: Laboratory Results - last 24 hr 08/30/24 08/30/24 05:28 05:50 WBC 7.8 RBC 4.94 Hgb 15.0 Hct 45.7 MCV 92.5 MCH 30.4 MCHC 32.8 RDW Std Deviation 43.1 RDW Coeff of Myra 12.7 Plt Count 250 MPV 9.8 Immature Gran % (Auto) 1.300 H Neut % (Auto) 60.7 Lymph % (Auto) 24.8 [place] % (Auto) 8.2 Eos % (Auto) 4.1 Baso % (Auto) 0.9 Absolute Neuts (auto) 4.8 Absolute Lymphs (auto) 1.94 Nucleated RBC % 0 PT 11.6 L INR 0.8 APTT 25.2 Sodium 140 Potassium 4.4 Chloride 105 Carbon Dioxide 25.8 Anion Gap 9 BUN 16 Creatinine 1.03 Estim Creat Clear Calc 101.56 Est GFR (MDRD) Non-Af 86 BUN/Creatinine Ratio 15.1 Glucose 109 H Lactic Acid 1.0 Calcium 8.7 Total Bilirubin 0.19 AST 34 ALT 33 Alkaline Phosphatase 105 Troponin T High Sens 10 NT pro BNP II 63 Total Protein 6.7 Albumin 3.8 Globulin 2.9 Albumin/Globulin Ratio 1.3 Radiography Diagnostic Testing: Clinical Impression(s) from Imaging Studies Chest X-Ray 08/30/24 06:20 IMPRESSION: No evidence for acute abnormality. Reading Location: [place] [id number] Discharge Plan Triage Chief Complaint: Shortness of Breath ED Provider: Devaughn Juares Dx/Rx/DC Orders Clinical Impression: COPD exacerbation, Tobacco use, Acute hypoxemic respiratory failure, Shortness of breath Prescriptions: No Action NK Primary Care Provider: Faraz Moore Referrals: Faraz Moore DO [Primary Care Provider] - Print Language: Malawian Disposition Disposition: [facility]
[2024-08-30 06:04] LABS: ALB/GLOB Ratio 1.3 RATIO (0.9-2.4); AST(SGOT) 34 U/L (<=37); Alanine Aminotransfer ALT/SGPT 33 U/L (<=46); Albumin, Serum 3.8 g/dL (3.5-5.0); Alkaline Phosphatase 105 U/L (40-129); Anion Gap 9 (5-15); BUN 16 mg/dL (4-19); BUN/Creat Ratio 15.1 RATIO (10-20); Calcium,Total 8.7 mg/dL (7.6-11.0); Carbon Dioxide 25.8 mmol/L (21.0-32.0); Chloride 105 mmol/L (98-108); Creatinine, Serum 1.03 mg/dL (0.70-1.20); EST Glomerular Filtration Rate 86 (>60); Estimated Creatinine Clearance 101.56 ml/min (50-250); Globulin 2.9 g/dL (2.2-4.2); Glucose 109 mg/dL (70-99); Potassium 4.4 mmol/L (3.3-5.1); Pro- Brain NATRIURETIC PEPTIDE 63 pg/mL (<=900); Protein, Total 6.7 g/dL (5.9-8.4); Sodium Level 140 mmol/L (133-145); Total Bilirubin 0.19 mg/dL (0.00-1.30); Troponin T High Sensitivity 10 ng/L (<=22)
[2024-08-30] MEDS: 0.9% Normal Saline (1000mL) 1,000 ML 999 ML IV ×2 (06:15→08:01)
--- NOTE | 2024-08-30 06:20 | RAD_ITS ---
PROCEDURE: CHEST PA AND LATERAL 08/30/2024 REASON FOR EXAM: SOB TECHNIQUE: Frontal and lateral views of the chest. COMPARISON: 12/01/2022. FINDINGS: The lungs are expanded. There is no demonstrated parenchymal abnormality. There is no demonstrated pleural abnormality. Normal heart and pericardium. Normal mediastinum and raquel. Normal visualized pulmonary arteries. Normal visualized aortic arch and descending thoracic aorta. Normal visualized thoracic spine. Normal visualized ribs, clavicles, and shoulders. There is no demonstrated abnormality of the visualized soft tissue structures of the upper abdomen. RAD/Chest PA and Lateral IMPRESSION: No evidence for acute abnormality. [facility]
--- OUTSIDE RECORDS SUMMARY | 2024-08-30 06:35 | XMS RPT_ITS | CCD ---
Author Organization [facility] Inform ion Partnership [facility] Care Team Providers Care Primer Charging Tool Setter Name Role Phone LUCHO WHITTAKER Attending Unavailable CATALINA DO, DR IRMA Naranjo Primary Care Unavailabl e [employer]-SOFTWARE ENGINEERING PROJECT MANAGER, RITA Attending Unavailabl e CATALINA DO, DR IRMA Naranjo Primary Care Unavailabl e [employer]-SOFTWARE ENGINEERING PROJECT MANAGER, RITA Referring Unavailabl e CATALINA DO, DR IRMA Naranjo Primary Care Physician Jeanine Goff PT Unavailable Unavailable Devaughn Juares Attending Irma Rodrigez Primary Care Unavailable Allergies Allergy Classification Reported Allergen(s) Allergy Type Date of Onset Reaction(s) Facility (1 source) Aspirin; Translations: [aspirin] Drug Allergy [facility] (1 source) Ibuprofen; Translations: [ibuprofen] Drug Allergy facial swelling [facility] (1 source) Naproxen; Translations: [naproxen] Drug Allergy [facility] (1 source) Penicillin; Translations: [penicillins] Drug Allergy [facility] (1 source) Aspirin Drug Allergy [facility] (1 source) Naproxen Drug Allergy [address] [place] [address] Repository (1 source) Penicillins Drug allergy (disorder) [facility] Medications Current Medications Medication Drug Class(es) Dates Sig (Normalized) Sig (Original) Ibuprofen (1 source) Nonsteroidal Anti-inflammatory Drug Start: 06-20-2022 ibuprofen PRN as needed for pain, 0 Refill(s) Start Date: 06/20/22 Status: Ordered tiZANidine 4 mg oral tablet (1 source) Central alpha-2 Adrenergic Agonist Start: 06-20-2022 tiZANidine 4 mg oral tablet Dose : 4 mg = 1 tab(s), Oral, q8h, # 90 tab(s), 0 Refill(s), Pharmacy: [facility] #[id number], Lumbosacral radiculitis Back spasm, 177, cm, 06/20/22 15:15:00 EDT, Height Start Date: 06/20/22 Status: Ordered Completed/Discontinued Medications Medication Drug Class(es) Dates Sig (Normalized) Sig (Original) acetaminophen 325 mg / HYDROcodone bitartrate 5 mg oral tablet (1 source) Opioid Agonist Start: 06-20-2022 End: 07-20-2022 take 1 tablet by mouth every six hours as needed for pain [employer] 325- 5 mg oral tablet Dose = 2 tab(s), Oral, q6hr, PRN for pain, # 60 tab(s), 0 Refill(s), Pharmacy: [facility] #[id number], Lumbosacral radiculitis Back spasm, 177, cm, 06/20/22 15:15:00 EDT, Height, 91.6 Start Date: 06/20/22 Stop Date: 07/20/22 Status: Ordered Problems Problem Classification Problem Date Documented Da te Episodic/Chronic Spondylosis; intervertebral disc disorders; other back problems (1 source) Intervertebral disc prolapse 11-05-2013 Chronic Spondylosis; intervertebral disc disorders; other back problems (4 sources) Lumbago with sciatica; Translations: [Lumbago with sciatica, left side] Episodic Unclassified (1 source) Back structure, excluding neck (body structure) 11-05-2013 Results Test Name Value Interpretation Reference Range Facil ity CBC W/Diff, Automatedon 06-0 Absolute Lymph 1.94 X10 3/uL Normal 0.83-4.51 [facility] Comment on above: Performed By: #### L 300.3900, L300.4310, L100.0100 #### [facility] [address] [place], [address] Absolute Neut 4.8 X10 3/uL Normal 2.0-7.7 [facility] Comment on above: Performed By: #### L 300.3900, L300.4310, L100.0100 #### [facility] [address] [place], [address] Basophils/100 WBC (Bld) 0.9 % Normal 0-1 [facility] Comment on above: Performed By: #### L 300.3900, L300.4310, L100.0100 #### [facility] [address] [place], [address] Eosinophils/100 WBC (Bld) 4.1 % Normal 0-5 [facility] Comment on above: Performed By: #### L 300.3900, L300.4310, L100.0100 #### [facility] [address] [place], [address] Erythrocyte distribution width (RBC) [Ratio] 12.7 % Normal 11.6-14.6 [facility] Comment on above: Performed By: #### L 300.3900, L300.4310, L100.0100 #### [facility] [address] [place], [address] Hematocrit (Bld) [Volume fraction] 45.7 % Normal 40-54 [facility] Comment on above: Performed By: #### L 300.3900, L300.4310, L100.0100 #### [facility] [address] [place], [address] Hemoglobin (Bld) [Mass/Vol] 15.0 g/dL Normal 13.0-16.5 [facility] Comment on above: Performed By: #### L 300.3900, L300.4310, L100.0100 #### [facility] [address] [place], [address] IG% 1.300 High 0.0-0.9 [facility] Comment on above: Result Comment: IG% - Immature Granulocytes (promyelocytes, myelocytes and metamyelocytes) > 1% indicates that a LEFT SHIFT is Present. Performed By: #### L 300.3900, L300.4310, L100.0100 #### [facility] [address] [place], [address] Lymphocytes/100 WBC (Bld) 24.8 % Normal 19-41 [facility] Comment on above: Performed By: #### L 300.3900, L300.4310, L100.0100 #### [facility] [address] [place], [address] MCH (RBC) [Entitic mass] 30.4 pg Normal 27.0-32.0 [facility] Comment on above: Performed By: #### L 300.3900, L300.4310, L100.0100 #### [facility] [address] [place], [address] MCHC (RBC) [Mass/Vol] 32.8 g/dL Normal 32-36 [facility] Comment on above: Performed By: #### L 300.3900, L300.4310, L100.0100 #### [facility] [address] [place], [address] MCV (RBC) [Entitic vol] 92.5 fL Normal 80-94 [facility] Comment on above: Performed By: #### L 300.3900, L300.4310, L100.0100 #### [facility] [address] [place], [address] Monocytes/100 WBC (Bld) 8.2 % Normal 0-10 [facility] Comment on above: Performed By: #### L 300.3900, L300.4310, L100.0100 #### [facility] [address] [place], [address] Neutrophils/100 WBC (Bld) 60.7 % Normal 47-70 [facility] Comment on above: Performed By: #### L 300.3900, L300.4310, L100.0100 #### [facility] [address] [place], [address] Nucleated RBC (Bld) [#/Vol] 0 10*3/uL Normal 0-5 [facility] Comment on above: Performed By: #### L 300.3900, L300.4310, L100.0100 #### [facility] [address] [place], [address] Platelet mean volume (Bld) [Entitic vol] 9.8 fL Normal 6.2-12.0 [facility] Comment on above: Performed By: #### L 300.3900, L300.4310, L100.0100 #### [facility] [address] [place], [address] Platelets (Bld) [#/Vol] 250 10*3/uL Normal 150-450 [facility] Comment on above: Performed By: #### L 300.3900, L300.4310, L100.0100 #### [facility] [address] [place], [address] RBC (Bld) [#/Vol] 4.94 10*6/uL Normal 4.6-6.2 [facility] Comment on above: Performed By: #### L 300.3900, L300.4310, L100.0100 #### [facility] [address] [place], [address] RDW SD 43.1 fl Normal 35.1-43.9 [facility] Comment on above: Performed By: #### L 300.3900, L300.4310, L100.0100 #### [facility] [address] [place], [address] WBC (Bld) [#/Vol] 7.8 10*3/uL Normal 4.4-11.0 [facility] Comment on above: Performed By: #### L 300.3900, L300.4310, L100.0100 #### [facility] [address] [place], [address] Partial Thromboplast Timeon 08-30-2024 aPTT Coag (Bld) [Time] 25.2 s Normal 24.1-36.2 [facility] Comment on above: Performed By: #### L 300.3900, L300.4310, L100.0100 #### [facility] [address] [place], [address] Prothrombin Time w/INRon INR Coag (PPP) [Relative time] 0.8 {INR} Normal [facility] Comment on above: Performed By: #### L 300.3900, L300.4310, L100.0100 #### [facility] [address] [place], [address] PT Coag (PPP) [Time] 11.6 s Low 11.7-14.9 [facility] Comment on above: Performed By: #### L 300.3900, L300.4310, L100.0100 #### [facility] [address] [place], [address] Encounters Encounter Date Encounter Type Care Provider Facility Start: 08-30-2024 ambulatory Devaughn Juares Facility:[facility] Start: 07-10-2022 End: 08-27-2022 ambulatory RITA [facility] Facility:B Start: 07-10-2022 End: 08-27-2022 Physical therapy management [facility] Start: 06-25-2022 ambulatory LUCHO WHITTAKER Facility: B Procedures Date Procedure Procedure Detail Performing Clinician Back structure, incl uding back of neck (body structure) RITA GREEN BROOM BUNDLER-SOFTWARE ENGINEERING PROJECT MANAGER Immunizations Immunization Date Immunization Notes Care Provider Maco bucio 10-30-2016 tetanus toxoid, redu milady diphtheria toxoid, and acellular pertussis vaccine, adsorbed RITA MAST BROOM BUNDLER-SOFTWARE ENGINEERING PROJECT MANAGER [facility] Himanshu 01-03-2016 influenza virus vaccine, unspecified formulation RITA MAST BROOM BUNDLER-SOFTWARE ENGINEERING PROJECT MANAGER [facility] Payers Date Payer Category Payer Self-pay 2022 Unknown [id number] 1970 Unknown [id number] 1970 Unknown [id number] Unknown [id number] Social History Date Type Detail Facility Start: 05-20-2019 Tobacco smoking status Light t obacco smoker (finding) [facility] Tobacco smoking status Heavy tob acco smoker (finding) [facility] Sex Assigned At Male [facility] Functional Status Date Assessment Result Facility 07-10-2022 Functional Status Objective: Observation: L lateral shift. Cardiovascular screen: O2 sat: 92% HR: 61 BP: 160/100 Sensation: Grossly intact to light touch on bilat LE's but he does note some gross decrease in light touch sensation on the L lateral LE Reflexes: Quads R: 2+ L: 2+ Achilles R:2+ L: 2+ Gait: Ambulates with considerable trunk flexion and lateral shift R Trunk AROM: Flex:min loss, Ext: major loss SGIS: R: min loss L: Major loss Repeated Motion Testing: Flex in seated reduced/abolished symptoms Special Tests: Slump: + L SLR:+L Cross leg raise:- Prone instability: NT [facility] Evaluation + Plan note 07-10-2022 Radiology Note Date & Type Note Facility 07-10-2022 Evaluation + Plan note Future Scheduled TestsMRI Spine Lumbar w/o Contrast 07/10/22 [facility] Hospital course Narrative Note Date & Type Note Facility Hospital course Narrative No data available for this section [facility] Hospital Discharge instructions Note Date & Type Note Facility Hospital Discharge instructions No data available for this section [facility] Progress note Note Date & Type Note Facility Progress note No data available for this section [facility] Summary Purpose Family History No Family History Records FoundNo Family History Records Found Advance Directives No Advanced Directives Records FoundNo Advanced Directives Records Found Additional Source Comments (unrecognized sect ion and content) No Status Records FoundNo Status Records Found INFORMATION SOURCE (unrecogn ized section and content) DATE CREATED AUTHOR 09/01/2022 [facility] ([place]) DATE CREATED AUTHOR AUTHOR'S ORGANIZ ATION 08/30/2024 [facility] Patient Care team informatio n (unrecognized section and content) Care Team Personnel Name: [place] Software Engineer Web Applications Jeanine PT Position: P3 Scheduling - Analytics Intern Advanced Member Role: Other Name: IRMA ARNOLD DO Position: P4 Physician - Primary Care Member Role: Primary Care Physician Address: Address: [address] [place] [address]- [place] Care Team Related Persons Name: GEO WARREN Address: Home [address] [place], [place] [id number] FOR RECORDS PERTAINING TO PATIENTS WHO ARE OR HAVE BEEN ENROLLED IN A CHEMICAL DEPENDENCY/SUBSTANCEABUSE PROGRAM, SOME INFORMATION MAY BE OMITTED. This clinical summary was aggregated from multiple sources. Caution should be exercised in using it in the provision of clinical care. This summary normalizes information from multiple sources, and as a consequence, information in this document may materially change the coding, format and clinical context of patient data. In addition, data may be omitted in some cases. CLINICAL DECISIONS SHOULD BE BASED ON THE PRIMARY CLINICAL RECORDS. [employer] [facility]. provides no warranty or guarantee of the accuracy or completeness of information in this document.
[2024-08-30] MEDS: Albuterol 2.5 MG/3 ML VIAL.NEB. INHALATION (07:01)
[2024-08-30 07:48] LABS: Troponin T High Sens 2 HR 8 ng/L (<=22)
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
[2024-08-30] MEDS: Enoxaparin 40 MG/0.4 ML Syringe SC (10:23)
--- NOTE | 2024-08-30 11:32 | CASEMGMT ---
LEILA YOUNG Assessment Face to Face with patient for initial transition planning/care coordination assessment. LEILA YOUNG introduced self and role at [facility], pt voices understanding. Pt is A&Ox4 and is resting comfortably in bed and is calm. Care providers, pharmacy, and demographics verified. Admitting dx: Acute Hypoxic RF, COPD Exacerbation LACE Strata: 1 PCP: Faraz Moore Specialists: Denies Preferred [facility]acy[facility] Insurance: [id number] Prescription Benefit: Yes LNOK: [place] (W) Living Arrangements:Pt lives with his in a single story home ADLs/IADLs: Indep Transportation: Self, . DME: Denies all DME uses or needs currently. Pt may qualify for home oxygen use. A verbal list of local in-network DME companies were provided to the pt at this time. Pt prefers [facility] HHC/SNF: Denies hx or needs Pt?s goal: Home Plan: Home, follow for potential new oxygen requirements. Otherwise, pt denies further needs at the time of DC and declines HHC or OP Tx. Pt states that he feels safe returning home with his once he is medically ready and denies further questions or concerns. Report given to SHAPER OPERATOR CM. Carlo Funk RN, CM
--- NOTE | 2024-08-30 11:58 | DCINST_ITS ---
Discharge Instructions Diet Discharge Diet: No restrictions DC O2, CPAP, BIPAP needs Home O2 Discharge instructions: No Dressing / Incision Discharge Activity: Return to Normal Activity Weight Bearing Status: Full weight bearing Follow Up Care Test Results: Test results from this visit will be discussed in further detail at your follow- up appointment, if applicable. Discharge Plan Admission Admit Date/Time: 08/30/24 07:54 Primary Reason for Your Visit: COPD exacerbation Attending Provider: Armando Patricia Primary Care Provider: Faraz Moore Discharge Orders/Prescriptions Prescriptions: New albuterol sulfate [Ventolin HFA] 90 mcg/actuation HFA aerosol inhaler 2 puff inhalation Q6H Qty: 6.7 1RF prednisone 20 mg tablet 40 mg PO DAILY Qty: 14 0RF No Action NK Referrals / Follow Up: Faraz Moore DO [Primary Care Provider] - Within 1 Month Disposition Disposition (needs filled in before D/C Order can be placed): Against Medical Advice
--- NOTE | 2024-08-30 14:43 | PCM.HOSP.N ---
Hospitalist Note Patient stated he wished to be discharged approximately 11:30 AM today, I talked with him briefly and he stated that the reason why is his work would fire him if he did not come to work today. I called in a prescription for an albuterol inhaler and 1 week of prednisone for the patient and urged him to follow-up with his family doctor.
--- NOTE | 2024-08-30 15:52 | CHAPLAIN ---
Type of Pastoral Visit ___ Initial Visit ___ Follow-up Visit ___ On-call Visit ___ General Patient Visit ___ Spiritual Assessment ___ Family Conference ___ Bereavement ___ Rapid Response ___ Code Blue ___ Other (describe below) Pastoral Care Referral From ___ Patient ___ Family ___ Nurse ___ Physician ___ Meter Attendant ___ Pie Crust Mixer ___ Other (describe below) Sacrament/Intervention ___ Active listening ___ Anointing ___ Episcopalian ___ Bereavement ___ Communion ___ Nuria exploration ___ ___ Life review ___ Prayer ___ Reconciliation ___ Sacrament of Sick ___ Supportive presence ___ Wedding ___ Other (describe below) Pastoral Comments patient was not in the room at time of attempted visit; he may have been discharged
== END 2024-08-30 12:11 | disposition left against medical advice (07) | DRG 192 ==
LOC: ED 07:13 → PCU 08:07
PROVIDERS: Admitting Provider Internal Medicine; Emergency Provider Emergency Medicine; PCP Family Medicine; Visit Provider Internal Medicine
DX: J44.1 Chronic obstructive pulmonary disease with (acute) exacerbation (principal); F17.210 Nicotine dependence, cigarettes, uncomplicated; R09.02 Hypoxemia; Z87.01 Personal history of pneumonia (recurrent)
CPT/HCPCS: 71046; 80053; 83605; 83880; 84484; 85025; 85610; 85730; 87040; 87631; 93005; 94640; 97802; 99252; 99285; A4216; G0463